=== PATIENT | female | born 1955 | race Caucasian/White ===

== ENCOUNTER → 2016-10-01 | Outpatient (CLI) | payer MEDICARE ==
[~2016-10-01] MED LIST: ADVIL200 M2 PO; AGGRENOX; ARICEPT; ASPIR-TRIN325 MG PO; BAYER ASPIRIN325 M1 PO; CARVEDILOL3.125 MG PO; CIPRO250 M1 PO; CLOPIDOGREL75 MG PO; COREG3.125 M1 PO; COREG3.125 MG PO; DILANTIN; FISH OIL 1,0001 EAC1 PO; FISH OIL 1,001000 M1 PO; HYDROCODONE/APA1 T16 PO; INDAPAMIDE2.5 M1 PO; K-DUR20 ME1 PO; KEPPRA500 M1 PO; KEPPRA500 M2 PO; LAMICTAL PO; LAMICTAL100 MG PO; LAMOTRIGINE ER200 MG PO; LAMOTRIGINE200 MG PO; LIPITOR40 MG PO; LISINOPRIL20 MG PO; MULTI VITAMIN1 EACH PO; MULTI-DAY VITA1 EACH PO; MULTI-VITAMIN1 EAC1 PO; OXYCODON HCL-AP1 TA2 PO; OXYCODONE HCL10 MG PO; OXYCODONE HCL30 MG PO; PERCOCET10 PO; POTASSIUM CHLO10 ME1 PO; POTASSIUM CHLO10 MEQ PO; PRAVASTATIN SOD80 MG; QUINAPRIL; RANITIDINE HCL150 M1 PO; SENIOR TABS1 EACH; SERTRALINE HCL100 M1 PO; SERTRALINE HCL100 MG PO; TASPRIN325 MG PO; VICODIN 5/1 TAB 5/50 PO; VIMPAT50 MG PO; ZANTAC150 M1 PO; ZOLOFT PO
--- NOTE | ~2016-10-01 | CR7 ---
[facility] A Service of [facility] RADIOLOGY TEXT RESULTS PATIENT: JULIA ULLOA LOCATION: [facility] : 55 UNIT #: [id number] AGE: [address]: Bulmaro Oviedo MD SEX: F ORDER DR: [id number] [facility] [place], [place] [address] [id number] O MR#: [id number] Acc #: [id number] NAME: JULIA ULLOA : 1955 SEX: F STUDY DATE/TIME: 10/01/2016 09:42 UNIT: [facility] ROOM: STUDY DESCRIPTION: CR Abdomen Single AP View Attending Physician: Bulmaro Oviedo M.D. Referring Physician: Bulmaro Oviedo M.D. Ordering Physician: Bulmaro Oviedo M.D. Primary Care Physician: Surinder Noriega M.D. MEDICAL IMAGING REPORT This report is preliminary unless electronic signature is present EXAM Abdomen 10/01/2016 09:42 hours HISTORY A 60-year-old with known kidney stones complaining of left-sided abdominal pain for [address] abdomen and pelvis 10/01/2016 FINDINGS Supine view of the abdomen and a cone view of the pelvis were performed. Again demonstrated is a calcification projecting over the left mid to lower pole kidney measuring up to 9 mm similar to prior study. The bowel gas pattern is unremarkable. No ureteral calculi are seen. Vascular calcifications in the pelvis are stable. Degenerative changes in the lower lumbar spine with underlying scoliosis unchanged. IMPRESSION 1. No change in 9 mm calculus projecting over the mid to lower pole left kidney similar to CT scan 10/01/2016. No definite ureteral calculus is seen. 2. Nonspecific bowel gas pattern. 3. There is underlying scoliosis and degenerative change in the lower lumbar levels, unchanged. Dictated by... Michelle oGrdon M.D. THIS IS AN ELECTRONICALLY VERIFIED REPORT Michelle Gordon M.D. at 10/02/2016 9:21 AM [facility] A Service of [facility] RADIOLOGY TEXT RESULTS PATIENT: JULIA ULLOA LOCATION: [facility] : 55 UNIT #: [id number] AGE: [address]: Bulmaro Oviedo MD SEX: F ORDER DR: LAMONT/alexis TD: 10/01/2016 15:56 JOB #: [id number] MEDICAL IMAGING REPORT Page 1 of 1 COPY
--- NOTE | ~2016-10-01 | CT3 ---
[facility] A Service of [facility] RADIOLOGY TEXT RESULTS PATIENT: JULIA ULLOA LOCATION: [facility] : 55 UNIT #: [id number] AGE: [address]: Bulmaro Oviedo MD SEX: F ORDER DR: [id number] [id number] [facility]. [place], [place] [address] [id number] O MR#: [id number] Acc #: [id number] NAME: JULIA ULLOA : 1955 SEX: F STUDY DATE/TIME: 10/01/2016 10:17 UNIT: [facility] ROOM: STUDY DESCRIPTION: CT Abd and Pelv WWo Cont Attending Physician: Bulmaro Oviedo M.D. Referring Physician: Bulmaro Oviedo M.D. Ordering Physician: Bulmaro Oviedo M.D. Primary Care Physician: Surinder Noriega M.D. MEDICAL IMAGING REPORT This report is preliminary unless electronic signature is present EXAM CT abdomen and pelvis without and with contrast 10/01/2016 INDICATIONS Renal calculi. Left flank pain for the past [address] of the abdomen and pelvis. Postcontrast CT abdomen and pelvis multiphase acquisition through the kidneys. This CT exam was performed with one or more of the following radiation dose reduction techniques: automatic exposure control, adjustment of mA and/or kV according to patient size, and iterative reconstruction. COMPARISON STUDIES 03/06/2016 FINDINGS ABDOMEN WITHOUT CONTRAST: No radiodense gallstones. 9 mm calculus left lower pole miles. It is not significantly changed from the prior. No radiodense ureteral calculus. PELVIS WITHOUT CONTRAST: No radiodense bladder calculus. ABDOMEN WITH CONTRAST: Kidneys enhance symmetrically. There is stable mild prominence of the left renal pelvis with abrupt transition at the UPJ. 1.3 cm cyst in the left kidney. No abnormal filling defect along the course of the ureters. Liver, spleen, adrenal glands, pancreas, gallbladder unremarkable. Uncomplicated colonic diverticula. Bowel loops nondilated. Normal appendix. [facility] A Service of [facility] RADIOLOGY TEXT RESULTS PATIENT: JULIA ULLOA LOCATION: [facility] : 55 UNIT #: [id number] AGE: [address]: Bulmaro Oviedo MD SEX: F ORDER DR: PELVIS WITH CONTRAST: The bladder is only begun to fill with contrast on the 5-minute delays. No definite bladder mass. No pelvic mass or fluid. No aggressive appearing bone lesion. IMPRESSION 1. Stable 9 mm calculus lower pole miles on the left. 2. No enhancing renal mass or obstructing radiodense calculus. 3. 1.3 cm cyst in the left kidney. 4. Stable mild prominence of the left renal pelvis with abrupt transition at the UPJ suggesting mild UPJ type narrowing. This is nonobstructed. Dictated by... Sumit Tomlin M.D. THIS IS AN ELECTRONICALLY VERIFIED REPORT Sumit Tomlin M.D. at 10/03/2016 7:14 AM Francisco Javier TD: 10/01/2016 16:07 JOB #: [id number] MEDICAL IMAGING REPORT Page 1 of 1 COPY
[2016-10-01 10:11] LABS: POC - CREATININE 0.81 mg/dL (0.44-1.03); POC - GFR >60.0 mL/min (>60)
== END | disposition home or self-care (01) ==
LOC: CCAT 09:15
PROVIDERS: Urology
DX: N20.0 Calculus of kidney (principal); N28.1 Cyst of kidney, acquired
CPT/HCPCS: 74000; 74178; 82565; Q9967

== ENCOUNTER 2017-03-10 19:18 | Emergency (ER) | payer MEDICARE ==
[~2017-03-10] VITALS: Ht 170.2 cm; Wt 74.8 kg
--- NOTE | ~2017-03-10 | EKG ---
PATIENT: JULIA ULLOA UNIT #: [id number] Ventricular Rate: 69 BPM Atrial Rate: 69 BPM P-R Interval: 168 ms QRS Duration: 80 ms Q-T Interval: 440 ms QTC Calculation(Bezet): 471 ms P Sesser: 30 degrees Calculated R Sesser: 48 degrees Calculated T Sesser: 54 degrees Diagnosis Line: Normal sinus rhythm Diagnosis Line: Nonspecific ST abnormality Diagnosis Line: Borderline ECG Diagnosis Line: When compared with ECG of 05-MAR-2016 22:51, Diagnosis Line: Borderline criteria for Anterior infarct are no Diagnosis Line: longer Present Diagnosis Line: Confirmed by CYNTHIA MONTOYA MD ([id number]) on 03/11/2017 Diagnosis Line: 7:18:13 PM INTERPRETING MD: LINDSAY LAMA
--- NOTE | ~2017-03-10 | CT71 ---
[facility] A Service of [facility] RADIOLOGY TEXT RESULTS PATIENT: JULIA ULLOA LOCATION: [facility] : 55 UNIT #: [id number] AGE: [address]: Kolby Santo MD SEX: F ORDER DR: [id number] [facility] [address] [place], [place] [address] [id number] E MR#: [id number] Acc #: [id number] NAME: JULIA ULLOA : 1955 SEX: F STUDY DATE/TIME: 03/10/2017 19:58 UNIT: [facility] ROOM: STUDY DESCRIPTION: CT Head Wo Contrast Attending Physician: Kolby Santo Ordering Physician: Ed Jens Jurado M.D. Primary Care Physician: Surinder Noriega M.D. MEDICAL IMAGING REPORT This report is preliminary unless electronic signature is present EXAM CT head without contrast, 03/10/2017 HISTORY 61-year-old female with seizures beginning today. COMPARISON CT head 03/06/2016 TECHNIQUE Routine unenhanced axial images performed through the brain. This CT exam was performed with one or more of the following radiation dose reduction techniques: automatic exposure control, adjustment of mA and/or kV according to patient size, and iterative reconstruction. FINDINGS Chronic bilateral infarcts with encephalomalacia in the left frontal lobe, right parietal lobe, and bilateral cerebellar hemispheres are unchanged from prior exams. There is also a chronic lacunar infarct in the left basal ganglia. No evidence of acute infarction, hemorrhage, mass lesion, or abnormal extraaxial fluid collection. No midline shift or focal mass effect. Ventricular system is normal in size and configuration. No acute bony abnormality. Visualized paranasal sinuses are clear. There is partial fluid opacification of the left sided mastoid air cells which is slightly worse since 03/06/2016. IMPRESSION 1. No acute intracranial abnormality. 2. Stable chronic infarcts with encephalomalacia in the left frontal lobe, right parietal lobe, left basal ganglia, and bilateral cerebellar hemispheres. No change since 03/06/2016. [facility] A Service [facility] RADIOLOGY TEXT RESULTS PATIENT: [facility]LLOA [id number] 55 UNIT #: [id number] AGE: [address]: Kolby Santo MD SEX: F ORDER DR: 3. Slight interval worsening of partial fluid opacification in the left mastoid air cells. Dictated by... Thaddeus Crawford M.D. THIS IS AN ELECTRONICALLY VERIFIED REPORT Thaddeus Crawford M.D. at 03/11/2017 1:19 PM JOSE/chary TD: 03/10/2017 23:43 JOB #: [id number] MEDICAL IMAGING REPORT Page 1 of 1 COPY
[~2017-03-10 19:18] MED LIST changes: -FISH OIL 1,0001 EAC1 PO; -KEPPRA500 M1 PO; -LAMICTAL PO; -MULTI-DAY VITA1 EACH PO; -PERCOCET10 PO; -TASPRIN325 MG PO
[2017-03-10 19:56] LABS: POC - CKMB 1.7 ng/mL (0.0-7.9); POC - TROPONIN <0.05 ng/mL (<=0.05)
[2017-03-10 20:18] LABS: BASOPHIL# 0.1 X10e3 (0-0.3); BASOPHIL% 0.6 % (0-2.5); EOSINOPHIL# 0.6 X10e3 (0-0.7); EOSINOPHIL% 4.7 % (0.0-7.0); HEMATOCRIT 37.8 % (35.0-45.0); HEMOGLOBIN 12.7 gm/dL (12.0-16.0); LYMPHOCYTE# 2.4 X10e3 (1.0-3.5); LYMPHOCYTE% 17.8 % (17.0-45.0); MEAN CELL VOLUME 92.8 FL (83-96); MEAN CORPUSCULAR HEMOGLOBIN 31.2 PG (28-34); MEAN CORPUSCULAR HGB CONC 33.6 g/dL (30-36); MEAN PLATELET VOLUME 7.8 FL (6.5-11.5); MONOCYTE# 0.9 X10e3 (0-1.0); MONOCYTE% 6.8 % (3.0-12.0); NEUTROPHIL# 9.5 X10e3 (1.5-7.1); NEUTROPHIL% 70.1 % (40-75); PLATELET COUNT 279 X10e3 (140-420); RED BLOOD COUNT 4.07 X10e (3.90-5.30); RED CELL DISTRIBUTION WIDTH 13.6 % (11.0-15.5); WHITE BLOOD COUNT 13.5 X10e3 (4.0-10.5)
[2017-03-10] MEDS ORDERED: FISH OIL 1,0001 EAC1 PO (20:18)
[2017-03-10 20:19] LABS: DIFF IND NO
[2017-03-10] MEDS ORDERED: LAMICTAL PO (20:24)
[2017-03-10] MEDS ORDERED: SERTRALINE HCL100 M1 PO (20:24)
[2017-03-10] MEDS ORDERED: ZANTAC150 M1 PO (20:25)
[2017-03-10] MEDS ORDERED: LIPITOR40 MG PO (20:25)
[2017-03-10] MEDS ORDERED: COREG3.125 M1 PO (20:25)
[2017-03-10] MEDS ORDERED: TASPRIN325 MG PO (20:26)
[2017-03-10] MEDS ORDERED: CLOPIDOGREL75 MG PO (20:26)
[2017-03-10] MEDS ORDERED: PERCOCET10 PO (20:26)
[2017-03-10] MEDS ORDERED: MULTI-DAY VITA1 EACH PO (20:26)
[2017-03-10] MEDS ORDERED: VIMPAT50 MG PO (20:27)
[2017-03-10] MEDS ORDERED: KEPPRA500 M1 PO (20:27)
[2017-03-10] MEDS ORDERED: K-DUR20 ME1 PO (20:27)
[2017-03-10 20:36] LABS: PROTHROMBIN TIME (PATIENT) 10.8 SECONDS (10.0-11.7)
[2017-03-10 20:40] LABS: BUN/CREATININE RATIO 12.5; CALCIUM SERUM 9.2 mg/dL (8.4-10.2); CREATININE SERUM 0.8 mg/dL (0.6-1.4); GLOM FILT RATE Estimated 79.6 mL/min (>60); POTASSIUM 3.6 mmol/L (3.5-5.1)
== END 2017-03-10 21:56 | disposition home or self-care (01) ==
LOC: CED 19:18
PROVIDERS: Emergency Medicine
DX: G40.209 Localization-related (focal) (partial) symptomatic epilepsy and epileptic syndromes with complex partial seizures, not intractable, without status epilepticus (principal); Z86.73 Personal history of transient ischemic attack (TIA), and cerebral infarction without residual deficits; Z79.899 Other long term (current) drug therapy; Z79.82 Long term (current) use of aspirin
CPT/HCPCS: 36415; 70450; 80048; 82553; 82947; 84484; 85025; 85610; 93005; 99285; C9254; J1953; J2060; J2270; J2405